=== PATIENT | female | born 1980 | race Caucasian/White ===

== ENCOUNTER 2024-01-02 21:09 | Outpatient (REF) | payer OTHER, SELFPAY ==
[2024-01-07 14:08] LABS: Age Gdln ACOG Testing Note (.); HPV Aptima Negative (Negative); IGP, Aptima HPV, rfx 16/18,45 Note (.)
== END 2024-01-02 21:10 | disposition home or self-care (01) ==
LOC: LAB 21:09
PROVIDERS: Visit Provider Physician Assistant
DX: Z01.419 Encounter for gynecological examination (general) (routine) without abnormal findings (principal)
CPT/HCPCS: 87624; G0145

== ENCOUNTER 2024-12-14 15:06 | Emergency (ER) | payer OTHER, SELFPAY ==
[2024-12-14 15:12] VITALS: BP 131/67; PULSE 68; TEMP 36.8; O2SAT 100; BMI 38.5
--- OUTSIDE RECORDS SUMMARY | 2024-12-14 15:16 | XMS_ITS | CCD ---
Author Organization [facility] Care Team Providers Care Supervisor [employer] Name Role Phone MARÍA, DR PUGA Admitting Unavailable REQUEST, DR PAYNE LISTED Primary Care Unavaila mitzy DANIEL, DR PUGA Attending Unavailable MARÍA, DR PUGA Consulting Unavailable MARÍA, DR PUGA Admitting Unavailable REQUEST, NONE LISTED Primary Care Unavaila mitzy DANIEL, DR PUGA Attending Unavailable MARÍA, DR PUGA Consulting Unavailable Lorenza Barrientos Unavailable MICHAEL ESTRADA Attending Unavailable Allergies Allergy Classification Reported Allergen(s) Allergy Type Date of Onset Reaction(s) Facility (1 source) Amoxicillin Drug Allergy 11-05-1995 The [facility] Repository (1 source) Latex Drug allergy (disorder) 11-05-2004 [facility] Repository (1 source) Penicillins Drug allergy (disorder) 11-05-1995 [facility] Repository (1 source) Amoxicillin Drug Allergy rash [facility] Other Medications Current Medications Medication Drug Class(es) Dates Sig (Normalized) Sig (Original) [id number] 200 actuat albuterol 0.09 mg/actuat metered dose inhaler (1 source) beta2-Adrenergic Agonist take 2 puff(s) by mouth every four to six hours as needed for cough Albuterol Sulfate HFA 108 (90 Base) MCG/ACT INHALE 2 PUFFS BY MOUTH EVERY 4 TO 6 HOURS NEEDED FOR WHEEZING FOR SHORTNESS OF BREATH OR COUGH Inhalation for 17 Days Active ciprofloxacin 3 mg/ml ophthalmic solution (1 source) Quinolone Antimicrobial Start: 09-30-2023 take 2 drop(s) into the eye(s) every four hours Ciloxan 0.3 % 2 drops left eye every 4 hrs for 5 days Sep, Active 24 hr tolterodine tartrate 2 mg extended release oral capsule (1 source) Cholinergic Muscarinic Antagonist Tolterodine Tartrate ER 2 MG Oral for 30 Days Active Problems Problem Classification Problem Date Documented Date Episodic/Chronic Immunizations and screening for infectious disease (5 sources) Encounter for screening for human papillomavirus (HPV); Translations: [Encounter for screening for infections with a predominantly sexual mode of transmission] Onset: 03-28-2022 Episodic Other female genital disorders (1 source) Other specified noninflammatory disorders of vagina; Translations: [OTH SPEC NONINFLAMMATORY D/O VAGINA] Onset: 03-30-2022 Episodic Other screening for suspected conditions (not mental disorders or infectious disease) (4 sources) Encounter for screening for malignant neoplasm of cervix; Translations: [ENC SCREENING MALIG NEOPLASM CERV] Onset: 05-05-2022 Episodic Superficial injury; contusion (1 source) Injury of conjunctiva and corneal abrasion without foreign body, left eye, initial encounter Episodic Results Test Name Value Interpretation Reference Range Facil ity PAP ACOG PANEL 2: 30 to 65on 05-10-2022 . . Normal [facility] Comment on above: Result Comment: Perf ormed at: WB Performed By: #### [id number] #### [facility] [address] [place] [address] Dr. Tran Almonte Age Gdln ACOG Testing 30-65 Normal [facility] Comment on above: Performed By: #### [id number] #### [facility] [address] [address] [address] Tran Almonte DIAGNOSIS: Comment Normal [facility] Comment on above: Result Comment: NEGA TIVE FOR INTRAEPITHELIAL LESION OR MALIGNANCY. Performed at: WB Performed By: #### [id number] #### [facility] [address] [address] [address] Tran Almonte HPV Aptima Negative Normal Negative [facility] Comment on above: Result Comment: This nucleic acid amplification test detects fourteen high-risk HPV types (16,18,31,33,35,39,45,51,52,56,58,59,66,68) without differentiation. Performed at: =G Performed By: #### [id number] #### [facility] [address] [address] [address] Tran Almonte Methodology: Comment Normal [facility] Comment on above: Result Comment: This liquid based ThinPrep(R) pap test was screened with the use of an image guided system. Performed at: WB Performed By: #### [id number] #### [facility] [address] [place] [address] Dr. Tran Almonte Note: Comment Normal [facility] Comment on above: Result Comment: The Pap smear is a screening test designed to aid in the detection of premalignant and malignant conditions of the uterine cervix. It is not a diagnostic procedure and should not be used as the sole means of detecting cervical cancer. Both false-positive and false-negative reports do occur. . Performed at: WB Performed By: #### [id number] #### [facility] [address] [place] [address] Dr. Tran Almonte Performed by: Comment Normal [facility] Comment on above: Result Comment: Alfredo Gibson, Sales Recruitment Specialist (ASCP) Performed at: WB Performed By: #### [id number] #### [facility] [address] [place] [address] Dr. Tran Almonte Specimen adequacy: Comment Normal [facility] Comment on above: Result Comment: Sati sfactory for evaluation. No endocervical component is identified. Performed at: WB Performed By: #### [id number] #### [facility] [address] [place] [address] Dr. Tran Almonte CHLAMYDIA/GONOCOCCUS KAMLA (SW AB/URINE/PAPon 03-29-2022 Chlamydia trachomatis, KAMLA Negative Normal Negative [facility] Comment on above: Performed By: #### C T/NGNA #### [facility] [address] [place] [address] Dr. Tran Almonte Neisseria gonorrhoeae, KAMLA Negative Normal Negative [facility] Comment on above: Performed By: #### C T/NGNA #### [facility] [address] [place] [address] Dr. Tran Almonte VAGINITIS/VAGINOSIS DNA PROB Arnalod 03-29-2022 Ayla species Negative Normal Negative [facility] Comment on above: Performed By: #### V AGINT #### [facility] [address] [address] [address] Tran Almonte Gardnerella vaginalis Negative Normal Negative [facility] Comment on above: Performed By: #### V AGINT #### [facility] [address] [address] [address] Tran Almonte Trichomonas vaginalis Negative Normal Negative [facility] Comment on above: Performed By: #### V AGINT #### [facility] [address] [address] [address] Tran Almonte Vital Signs Date Time Vital Sign Value Performing Clinician Facility 09-30-2023 09:00-0500 Body height 157.48 cm Lorenza Barrientos Other [facility] Other 09-30-2023 09:00-0500 Body mass index (BMI) [Ratio] 45.43 kg/m2 Lorenza Barrientos Other [facility] Other 09-30-2023 09:00-0500 Body temperature 99.8 [degF] Lorenza Iliana Other [facility] Other 09-30-2023 09:00-0500 Body weight 112.67 kg Lorenza Iliana Other [facility] Other 09-30-2023 09:00-0500 Respiratory rate 18 /min Lorenza Iliana Other [facility] Other 09-30-2023 09:00-0500 SaO2% (BldA) [Mass fraction] 98 % Lorenza Iliana Other [facility] Other Encounters Encounter Date Encounter Type Care Provider Facility Start: 01-02-2024 End: 01-02-2024 ambulatory MICHAEL ESTRADA Not Available Start: 09-30-2023 End: 09-30-2023 ambulatory Lorenza Barrientos Other [facility] Other Start: 09-30-2023 Office outpatient ne w 10 minutes Lorenza Barrientos [facility] Start: 05-05-2022 End: 05-05-[address] VIVIEN DANIEL Facility:[facility] Start: 03-28-2022 End: 03-28-[address] VIVIEN DANIEL Facility:[facility] Payers Date Payer Category Payer Unknown [id number] 1980 Unknown [id number] 1980 Unknown [id number] 1957 Private Health Insurance [id number] Social History Date Type Detail Facility Unknown if ever smoked [facility] Other Sex Assigned At Sex Assigned At Bir th [facility] Other Evaluation note 09-30-2023 Note Date & Type Note Facility 09-30-2023 Evaluation note Encounter Date Diagnosis Assessment Notes Sep, Abrasion of left cornea, initial encounter (ICD-10 - S05.02XA) Use the eyedrops as prescribed. Take Tylenol or Motrin as needed for pain. Wear sunglasses when out and about. Follow-up with your family physician if no improvement in 2 to 3 days [facility] Other History general Narrative - Reported Note Date & Type Note Facility History general Narrative - Reported Type Medical History bladder trouble Surgical History C section x2 Hospitalization History See Above [facility] Other Summary Purpose Family History No Family History Records FoundNo Family History Records Found Advance Directives No Advanced Directives Records FoundNo Advanced Directives Records Found Additional Source Comments INFORMATION SOURCE (unrecogn ized section and content) DATE CREATED AUTHOR 05/11/2022 [facility] DATE CREATED AUTHOR AUTHOR'S ORGANIZ ATION 01/05/2024 [facility] EPIC REASON FOR VISIT (unrecogniz ed section and content) SCRATCHED EYE PUTTING UP THE [facility]ERY TREE FOR RECORDS PERTAINING TO PATIENTS WHO ARE OR HAVE BEEN ENROLLED IN A CHEMICAL DEPENDENCY/SUBSTANCEABUSE PROGRAM, SOME INFORMATION MAY BE OMITTED. This clinical summary was aggregated from multiple sources. Caution should be exercised in using it in the provision of clinical care. This summary normalizes information from multiple sources, and as a consequence, information in this document may materially change the coding, format and clinical context of patient data. In addition, data may be omitted in some cases. CLINICAL DECISIONS SHOULD BE BASED ON THE PRIMARY CLINICAL RECORDS. [facility] [employer] [facility]. provides no warranty or guarantee of the accuracy or completeness of information in this document.
--- NOTE | 2024-12-14 15:19 | XR_ITS ---
The [address] [address] Patient Name: CARLOS BARRON MRN: [id number] date: 1980 Sex: F Assigned Patient Location: ED.MAIN Current Patient Location: Accession/Order Number: [id number] Exam Date: 12/14/2024 15:35 Report Date: 12/14/2024 17:07 At the request of: ROCKY GOFF Procedure: XR foot LT min 3V EXAM: XR foot LT min 3V, XR knee AZUCENA 4V HISTORY: pain left foot COMPARISON: None. TECHNIQUE: 3 views of the left foot, 4 views of each knee are performed. FINDINGS: Left foot: There is no acute fracture. The bony structures are intact. Joint spaces are maintained. Unremarkable soft tissues. Bilateral knees: There is no acute fracture. There are mild degenerative changes bilaterally, with joint space narrowing predominantly within the medial compartments. No suprapatellar effusion. XR/XR foot LT min 3V IMPRESSION: No acute bony abnormality. Degenerative changes seen within both knees, greatest within the medial compartments. Electronically authenticated by: ANITA RAMIREZ Date: 12/14/2024 17:07
--- NOTE | 2024-12-14 15:19 | XR_ITS ---
The [address] [address] Patient Name: CARLOS BARRON MRN: [id number] date: 1980 Sex: F Assigned Patient Location: ED.MAIN Current Patient Location: Accession/Order Number: [id number] Exam Date: 12/14/2024 15:35 Report Date: 12/14/2024 17:07 At the request of: ROCKY GOFF Procedure: XR knee AZUCENA 4V EXAM: XR foot LT min 3V, XR knee AZUCENA 4V HISTORY: pain left foot COMPARISON: None. TECHNIQUE: 3 views of the left foot, 4 views of each knee are performed. FINDINGS: Left foot: There is no acute fracture. The bony structures are intact. Joint spaces are maintained. Unremarkable soft tissues. Bilateral knees: There is no acute fracture. There are mild degenerative changes bilaterally, with joint space narrowing predominantly within the medial compartments. No suprapatellar effusion. XR/XR knee AZUCENA 4V IMPRESSION: No acute bony abnormality. Degenerative changes seen within both knees, greatest within the medial compartments. Electronically authenticated by: ANITA RAMIREZ Date: 12/14/2024 17:07
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
[2024-12-14] MEDS: ACETAMINOPHEN 500 MG TABLET 1000 MG PO (15:29)
[2024-12-14 15:52] LABS: HCG Qualitative NEGATIVE (NEGATIVE); Internal Control Within Normal Limits
== END 2024-12-14 16:40 | disposition home or self-care (01) ==
PROVIDERS: Personal Emergency Response Attendant; Emergency Provider Emergency Medicine; PCP Family Medicine
DX: S90.32XA Contusion of left foot, initial encounter (principal); S80.02XA Contusion of left knee, initial encounter; S80.01XA Contusion of right knee, initial encounter; V49.49XA Driver injured in collision with other motor vehicles in traffic accident, initial encounter
CPT/HCPCS: 36415; 73564; 73630; 84703; 99284

== ENCOUNTER 2025-01-08 14:56 | Outpatient (REF) | payer OTHER, SELFPAY ==
--- OUTSIDE RECORDS SUMMARY | 2025-01-08 15:03 | XMS_ITS | CCD ---
Author Organization [facility] Inform ion Partnership [facility] Care Team Providers Care Creative Engagement Director Name Role Phone MINH, DR PUGA Admitting Unavailable REQUEST, DR NONE LISTED Primary Care Unavaila mitzy DANIEL, DR PUGA Attending Unavailable MINH, DR PUGA Consulting Unavailable MINH, DR PUGA Admitting Unavailable REQUEST, DR NONE LISTED Primary Care Unavaila mitzy DANIEL, DR PUGA Attending Unavailable MINH, DR PUGA Consulting Unavailable Lorenza Barrientos Unavailable MICHAEL ESTRADA Attending Unavailable Ignacio Escalera MD Primary Care Provider [phone] Allergies Allergy Classification Reported Allergen(s) Allergy Type Date of Onset Reaction(s) Facility (1 source) Amoxicillin Drug Allergy 6 [facility] (1 source) Latex Drug allergy (disorder) 5 [facility] (1 source) Penicillins Drug allergy (disorder) 6 [facility] (1 source) Amoxicillin Drug Allergy rash [facility] Other (1 source) Penicillins [facility] adverse [facility] Medications Current Medications Medication Drug Class(es) Dates Sig (Normalized) Sig (Original) [id number] actuat albuterol 0.09 mg/actuat metered dose inhaler (2 sources) beta2-Adrenergic Agonist Start: 08-06-2023 take 2 puff(s) by mouth every four to six hours as needed for cough albuterol HFA 90 mcg/act inhaler INHALE 2 PUFFS BY MOUTH EVERY 4 TO 6 HOURS NEEDED FOR WHEEZING FOR SHORTNESS OF BREATH OR COUGH 08/06/2023 Active take 2 puff(s) by mo uth every four to six hours as needed for cough Albuterol Sulfate HFA 108 (90 Base) MCG/ ACT INHALE 2 PUFFS BY MOUTH EVERY 4 [...] tartrate 2 mg extended release oral capsule (2 sources) Cholinergic Muscarinic Antagonist Start: 12-29-2024 take 1 capsule by mouth once daily tolterodine LA (Detrol LA) 2 MG 24 hr capsule Indications: Overactive bladder Take 1 capsule (2 mg) by mouth Daily 30 capsule 3 12/29/2024 Active Tolterodine Tart rate ER 2 MG Oral for 30 Days [...] 30 to 65on 05-10-2022 . . Normal [facility] Comment on above: Result Comment: Perf ormed at: WB Performed By: #### [id number] #### [facility] [address] [place] [address] Dr. Tran Almonte Age Gdln ACOG Testing 30-65 Normal [facility] Comment on above: Performed By: #### [id number] #### [facility] [address] [address] [address] Tran Almonte DIAGNOSIS: Comment Normal [facility] Comment on above: Result Comment: NEGA TIVE FOR INTRAEPITHELIAL LESION OR MALIGNANCY. Performed at: WB Performed By: #### [id number] #### [facility] [address] [place] [address] Dr. Tran Almonte HPV Aptima Negative Normal Negative [facility] Comment on above: Result Comment: This nucleic acid amplification test detects fourteen high-risk HPV types (16,18,31,33,35,39,45,51,52,56,58,59,66,68) without differentiation. Performed at: =G Performed By: #### [id number] #### [facility] [address] [place] [address] Dr. Tran Almonte Methodology: Comment Normal [facility] Comment on above: Result Comment: This liquid based ThinPrep(R) pap test was screened with the use of an image guided system. Performed at: WB Performed By: #### [id number] #### [facility] [address] [place] [address] Dr. Tran Almonte Note: Comment Normal [facility] Comment on above: Result Comment: The Pap smear is a screening test designed to aid in the detection of premalignant and malignant conditions of the uterine cervix. It is not a diagnostic procedure and should not be used as the sole means of detecting cervical cancer. Both false-positive and false-negative reports do occur. . Performed at: WB Performed By: #### [id number] #### [facility] [address] [place] [address] Dr. Tran Almonte Performed by: Comment Normal [facility] Comment on above: Result Comment: Alfredo Gibson, Electric Motor Repairer (ASCP) Performed at: WB Performed By: #### [id number] #### [facility] [address] [place] [address] Dr. Tran Almonte Specimen adequacy: Comment Normal [facility] Comment on above: Result Comment: Sati sfactory for evaluation. No endocervical component is identified. Performed at: WB Performed By: #### [id number] #### [facility] [address] [address] [address] Tran Almonte CHLAMYDIA/GONOCOCCUS KAMLA (SW AB/URINE/PAPon 03-29-2022 Chlamydia trachomatis, KAMLA Negative Normal Negative [facility] Comment on above: Performed By: #### C T/NGNA #### [facility] [address] [address] [address] Tran Almonte Neisseria gonorrhoeae, KAMLA Negative Normal Negative [facility] Comment on above: Performed By: #### C T/NGNA #### [facility] [address] [address] [address] Tran Almonte VAGINITIS/VAGINOSIS DNA PROB Arnaldo 03-29-2022 Ayla species Negative Normal Negative [facility] Comment on above: Performed By: #### V AGINT #### [facility] [address] [place] [address] Dr. Tran Almonte Gardnerella vaginalis Negative Normal Negative [facility] Comment on above: Performed By: #### V AGINT #### [facility] [address] [place] [address] Dr. Tran Almonte Trichomonas vaginalis Negative Normal Negative [facility] Comment on above: Performed By: #### V AGINT #### [facility] [address] [place] [address] Dr. Tran Almonte Vital Signs Date Time Vital Sign Value Performing Clinician Facility 09-30-2023 09:00-0500 Body height 157.48 cm Lorenza Barrientos Other [facility] Other 09-30-2023 09:00-0500 Body mass index (BMI) [Ratio] 45.43 kg/m2 Lorenza Barrientos Other [facility] Other 09-30-2023 09:00-0500 Body temperature 99.8 [degF] Lorenza Barrientos Other [facility] Other 09-30-2023 09:00-0500 Body weight 112.67 kg Lorenza Barrientos Other [facility] Other 09-30-2023 09:00-0500 Respiratory rate 18 /min Lorenza Barrientos Other [facility] Other 09-30-2023 09:00-0500 SaO2% (BldA) [Mass fraction] 98 % Lorezna Barrientos Other [facility] Other Encounters Encounter Date Encounter Type Care Provider Facility Start: 01-08-2025 End: 01-08-2025 Bamboo flowsheet Vivien Minh DO Work Phone: [facility] Start: 01-08-2025 End: 01-08-2025 Bamboo flowsheet Vivien Minh DO Work Phone: [facility] Start: 01-02-2024 End: 01-02-2024 ambulatory MICHAEL ESTRADA Not Available Start: 09-30-2023 End: 09-30-2023 ambulatory Lorenza Barrientos Other [facility] Other Start: 09-30-2023 Office outpatient ne w 10 minutes Lorenza Barrientos [facility] Start: 05-05-2022 End: 05-05-[address] VIVIEN DANIEL Facility:[facility] Start: 03-28-2022 End: 03-28-[address] VIVIEN DANIEL Facility:[facility] Payers Date Payer Category Payer Managed Care O (unspecified) [employer] [id number] 1982 Unknown [id number] 1982 Unknown [id number] 1982 Unknown [id number] 1959 Private Health Insurance [id number] Social History Date Type Detail Facility Unknown if ever smoked [facility] Other Sex Assigned At Sex Assigned At Bir th [facility] Other Tobacco smoking stat [facility] Tobacco smoking consumption unknown [facility] Start: 1980 Sex assigned at Female [facility] Start: 05-16-2023 Gender identity Identifies as female gender (finding) [facility] Start: 05-16-2023 Sexual orientation Heterosexual (finding) [facility] Evaluation note 09-30-2023 Note Date & Type Note Facility 09-30-2023 Evaluation note Encounter Date Diagnosis Assessment Notes Sep, Abrasion of left cornea, initial encounter (ICD-10 - S05.02XA) Use the eyedrops as prescribed. Take Tylenol or Motrin as needed for pain. Wear sunglasses when out and about. Follow-up with your family physician if no improvement in 2 to 3 days [facility] Other History general Narrative - Reported Note Date & Type Note Facility History general Narrative - Reported Type Medical History bladder trouble Surgical History C section x2 Hospitalization History See Above [facility] Other Summary Purpose Family History No Family History Records FoundNo Family History Records Found Advance Directives No Advanced Directives Records FoundNo Advanced Directives Records Found Additional Source Comments INFORMATION SOURCE (unrecogn ized section and content) DATE CREATED AUTHOR 05/11/2022 [facility] DATE CREATED AUTHOR AUTHOR'S ORGANIZ ATION 01/05/2024 [facility] EPIC REASON FOR VISIT (unrecogniz ed section and content) SCRATCHED EYE PUTTING UP [employer] Care Teams (unrecognized sec tion and content) Creative Engagement Director Relationship Specialty Start Date End Date Ignacio Escalera MD [address], [place] [address] PCP - General Family Medicine 01/02/24 FOR RECORDS PERTAINING TO PATIENTS WHO ARE [...] BE BASED ON THE PRIMARY CLINICAL RECORDS. [facility]. provides no warranty or guarantee of the accuracy or completeness of information in this document.
[2025-01-12 15:08] LABS: Age Gdln ACOG Testing Note (.); HPV Aptima Negative (Negative); IGP, Aptima HPV, rfx 16/18,45 Note (.)
== END 2025-01-08 14:57 | disposition home or self-care (01) ==
LOC: LAB 14:56
PROVIDERS: PCP Family Medicine; Visit Provider Obstetrics & Gynecology
DX: Z01.419 Encounter for gynecological examination (general) (routine) without abnormal findings (principal)
CPT/HCPCS: 87624; 88175